=== PATIENT | female | born 1990 | race American Indian/Alaskan Native ===

== ENCOUNTER 2017-02-23 06:15 | Inpatient (IN) | payer BC, MEDICAID, OTHER ==
[~2017-02-23 06:15] MED LIST: Acetaminophen 325 MG Tab PO PRN; Acetaminophen/oxyCODONE 325-5 MG Tab PO PRN; Carboprost Tromethamine 250 MCG/1 ML Amp IM ONE; Citric Acid/Sodium Citrate Solution 30 ML Cup PO ONE; Methylergonovine 0.2 MG/1 ML Amp IM PRN; Misoprostol 400 MCG (4 X 100 MCG TAB) RECTAL PRN; Naloxone 2 MG/2 ML Syringe IVPUSH PRN; Ondansetron 4 MG/2 ML SDV IV PRN; Oxytocin/Normal Saline 30 UNIT/500 ML BAG IV SCH; ceFAZolin 2 GM in Premix Bag 1 BAG IV ONE; diphenhydrAMINE 50 MG/ML SDV IVPUSH PRN; ePHEDrine 50 MG/ML SDV IVPUSH PRN
[2017-02-23] MEDS: Lactated Ringers 1,000 ML IV SCH ×6 (06:49→22:44)
--- NOTE | 2017-02-23 08:35 | PCM.PREANE ---
Preanesthetic Assessment - Anesthesia/Transfusion/Family Hx Anesthesia History: Prior Anesthesia Without Reaction Family History of Anesthesia Reaction: No Transfusion History: No Prior Transfusion(s) Intubation History: Unknown - Review of Systems General: No Symptoms Pulmonary: No Symptoms Cardiovascular: No Symptoms Gastrointestinal: No symptoms Neurological: No Symptoms Other: Reports: None - Physical Assessment NPO Status Date: 02/22/17 NPO Status Time: 22:30 Pulse: 83 O2 Sat by Pulse Oximetry: 97 Respiratory Rate: 16 Blood Pressure: 120/82 Temperature: 98.1 C Vital Signs: Last Vital Signs Temp 36.6 C 02/23/17 06:30 Pulse 88 02/23/17 06:30 Resp 16 02/23/17 06:30 BP 138/84 02/23/17 06:30 Pulse Ox 97 02/23/17 06:30 Height: 1.65 m Weight: 112.037 kg ASA Class: 2 Airway Class: Mallampati = 3 Dentition: Reports: Missing Tooth/Teeth Thyro-Mental Finger Breadths: 2 Mouth Opening Finger Breadths: 3 ROM/Head Extension: Full Lungs: Clear to auscultation Cardiovascular: Regular Rate - Lab Values: Laboratory Last Values WBC 8.7 10^3/uL (5.0-10.0) 02/23/17 06:20 RBC 4.51 10^6/uL (4.2-5.4) 02/23/17 06:20 Hgb 11.8 g/dL (12.0-16.0) L 02/23/17 06:20 Hct 37.6 % (37.0-47.0) 02/23/17 06:20 MCV 83.4 fL (80-100) 02/23/17 06:20 MCH 26.2 pg (27.0-34.0) L 02/23/17 06:20 MCHC 31.4 g/dL (33.0-35.0) L 02/23/17 06:20 Plt Count 233 10^3/uL (150-450) 02/23/17 06:20 Urine Opiates Screen Negative (NEGATIVE) 02/23/17 06:35 Ur Oxycodone Screen Negative (NEGATIVE) 02/23/17 06:35 Urine Methadone Screen Negative (NEGATIVE) 02/23/17 06:35 Ur Barbiturates Screen Negative (NEGATIVE) 02/23/17 06:35 U Tricyclic Antidepress Negative (NEGATIVE) 02/23/17 06:35 Ur Phencyclidine Scrn Negative (NEGATIVE) 02/23/17 06:35 Ur Amphetamine Screen Negative (NEGATIVE) 02/23/17 06:35 U Methamphetamines Scrn Negative (NEGATIVE) 02/23/17 06:35 Urine MDMA Screen Negative (NEGATIVE) 02/23/17 06:35 U Benzodiazepines Scrn Negative (NEGATIVE) 02/23/17 06:35 Urine Cocaine Screen Negative (NEGATIVE) 02/23/17 06:35 U Marijuana (THC) Screen Negative (NEGATIVE) 02/23/17 06:35 Blood Type O POSITIVE 02/23/17 06:20 Gel Antibody Screen Negative 02/23/17 06:20 - Allergies Allergies/Adverse Reactions: Allergies Allergy/AdvReac Type Severity Reaction Status Date / Time azithromycin Allergy Seizure Verified 02/23/17 00:45 erythromycin base Allergy Hives Verified 02/23/17 00:47 - Blood Blood Available: No - Anesthesia Plan Pre-Op Medication Ordered: Antacids - Acknowledgements Anesthesia Type Planned: Spinal Pt an Appropriate Candidate for the Planned Anesthesia: Yes Alternatives and Risks of Anesthesia Discussed w Pt/Guardian: Yes Pt/Guardian Understands and Agrees with Anesthesia Plan: Yes PreAnesthesia Questionnaire HEENT History: Reports: None Cardiovascular History: Reports: None Respiratory History: Reports: None Gastrointestinal History: Reports: None Genitourinary History: Reports: UTI, recurrent ANIMAL NUTRITIONIST History: Reports: Musculoskeletal History: Reports: None Neurological History: Reports: None Psychiatric History: Reports: Addiction Endocrine/Metabolic History: Reports: None Hematologic History: Reports: None Immunologic History: Reports: None Oncologic (Cancer) History: Reports: None Dermatologic History: Reports: None - Infectious Disease History Infectious Disease History: Reports: None - Past Surgical History Head Surgeries/Procedures: Reports: None - SUBSTANCE USE Smoking Status *Q: Never Smoker Tobacco Use Within Last Twelve Months: No Second Hand Smoke Exposure: Yes Recreational Drug Use History: Yes Recreational Drug Type: Reports: Amphetamines (Speed) - HOME MEDS Home Medications: Home Meds Pnv No.122/Iron/Folic Acid [ Multi Tablet] 1 tab PO DAILY 02/23/17 [ History] - CURRENT (IN HOUSE) MEDS Current Meds: Current Medications Acetaminophen (Tylenol) 650 mg PO Q6H PRN PRN Reason: mild pain or fever Diphenhydramine HCl (Benadryl) 25 mg IVPUSH Q6H PRN PRN Reason: Itching or Nausea Docusate Sodium (Colace) 100 mg PO Q12H PRN PRN Reason: Constipation Ephedrine Sulfate (Ephedrine Sulfate) 5 mg IVPUSH SEECOMMENT PRN PRN Reason: Other Ferrous Sulfate (Ferrous Sulfate) 325 mg PO BRK LUDY Lactated Ringer's (Ringers, Lactated) 1,000 mls @ 125 mls/hr IV ASDIRECTED LUDY Last Admin: 02/23/17 07:28 Dose: 125 mls/hr Oxytocin/Sodium Chloride (Pitocin In Ns 30 Unit/500 Ml) 30 unit in 500 mls @ 500 mls/hr IV TITRATE LUDY; 500 MUNITS/MIN PRN Reason: Protocol Ibuprofen (Motrin) 800 mg PO Q8H PRN PRN Reason: mild pain or fever Ketorolac Tromethamine (Toradol) 15 mg IVPUSH Q6H [facility] Stop: 02/24/17 01:01 Methylergonovine Maleate (Methergine) 0.2 mg IM ONETIME PRN PRN Reason: Excessive Vaginal Bleeding Misoprostol (Cytotec) 800 mcg RECTAL ASDIRECTED PRN PRN Reason: Bleeding Naloxone HCl (Narcan) 0.1 mg IVPUSH SEECOMMENT PRN PRN Reason: Respiratory Depression Ondansetron HCl (Zofran) 4 mg IV Q4H PRN PRN Reason: Nausea/Vomiting Oxycodone/Acetaminophen (Percocet 325-5 Mg) 1 tab PO Q4H PRN PRN Reason: Pain (moderate 4-6) Oxycodone/Acetaminophen (Percocet 325-5 Mg) 2 tab PO Q4H PRN PRN Reason: Pain (moderate 4-6) Prenat Multivit/Cylinder Honer/Iron/Folic Ac ( Plus Iron) 1 each PO DAILY [facility] Simethicone (Simethicone) 80 mg PO Q4H PRN PRN Reason: Gas Discontinued Medications Carboprost Tromethamine (Hemabate Ds) 250 mcg IM ONETIME ONE Stop: 02/23/17 06:01 Citric Acid/Sodium Citrate (Bicitra Solution) 30 ml PO ONETIME ONE Stop: 02/23/17 06:01 Last Admin: 02/23/17 07:30 Dose: 30 ml Cefazolin Sodium/Dextrose 2 gm (/ Premix) 50 mls @ 100 mls/hr IV ONETIME ONE Stop: 02/23/17 06:29
[2017-02-23] MEDS ORDERED: Oxytocin/Normal Saline 30 UNIT/500 ML BAG IV ONE (10:59)
[2017-02-23] MEDS: Ferrous Sulfate 325 MG Tab PO SCH (11:51)
[2017-02-23] MEDS: Prenatal Multivitamin with Calcium/Folic Acid/Iron Tab PO SCH ×2 (11:54→11:55)
[2017-02-23] MEDS ORDERED: Ketorolac 30 MG/ML SDV IVPUSH SCH (13:00)
--- NOTE | 2017-02-23 14:56 | OR ---
DATE: 02/23/2017 PREOPERATIVE DIAGNOSES: 1. Intrauterine at 39 weeks by dates. 2. Previous x2, requests repeat low transverse . 3. Rubella equivocal. 4. Group B Streptococcus negative. 5. Urinary tract infection with E coli-treated in . 6. Positive urine drug screen for amphetamines on 01/22/2017, negative upon admission. 7. G5, P4-0-0-4. POSTOPERATIVE DIAGNOSES: 1. Intrauterine at 39 weeks by dates-delivered. 2. Previous x2, requests repeat low transverse . 3. Rubella equivocal. 4. Group B Streptococcus negative. 5. Urinary tract infection with E coli-treated in . 6. Positive urine drug screen for amphetamines on 01/22/2017, negative upon admission. 7. G5, P4-0-0-4. 8. Extensive scar tissue superficial to the fascia, left worse than right, with recommendation to the patient make sure OBGYN is available/assisting with next if she becomes again. PROCEDURE PERFORMED: Nonstress test followed by repeat low transverse C- section. MANUFACTURING EXECUTIVE: Radha Mendieta MD and Tino Mendoza, MS III. ANESTHESIA: Spinal. ESTIMATED BLOOD LOSS: 700 mL. IV FLUIDS: 2 L. URINE OUTPUT: 60 mL of clear yellow. START: 0812. UTERINE INCISION: 818. DELIVERY: 819. STOP: 839. FINDINGS: Male Apgars and weight pending. DESCRIPTION OF PROCEDURE: After proper consent was obtained, the patient was brought to the operating room where spinal anesthetic was administered. Garber was placed in preop under sterile conditions. Abdomen was prepped and draped in normal sterile fashion. The patient was placed in supine position with left lateral tilt. A skin incision was then made over the lower abdomen in transverse Pfannenstiel- type fashion over the previous scar, which was carried down to the fascia and scored in midline. Subcutaneous tissue was raked laterally with Delgadillo retractor and extensive scar tissue was noted on the left, requiring careful dissection using blunt, sharp, and electrocautery technique. Fascial incision was extended in transverse fashion using these techniques. Iman clamps x2 were used to grasp the superior aspect of fascia and rectus muscles were dissected from the fascia using sharp and blunt technique. In a similar fashion, Iman clamps x2 were used to grasp the inferior portion, and rectus and pyramidalis muscle was dissected from fascia using sharp and blunt technique. Rectus muscles were in the midline with blunt technique. Abdominal cavity was entered in blunt technique and incision was extended superiorly and inferiorly using blunt technique. Virgil O large retractor was then introduced and used. Lower uterine segment was identified, and curvilinear incision was made on lower uterine segment at 0819 hours. Uterus was entered sharply. Uterine incision was then extended in a transverse fashion using blunt technique. Bulging bag of water was then ruptured with Allis clamps. Subsequently, vertex was delivered through the incision followed by rest of the infant without difficulty. Mouth and nares were suctioned on the patient's lap. Cord was doubly clamped and cut, and the was brought over to team Then, approximately 10 mL cord blood was obtained for labs. Placenta then delivered with gentle cord traction and fundal massage. Uterine cavity was cleared of all blood clots and debris with lap sponge. Sanchez clamps were then used to grasp the uterine incision, this was closed in a running locked fashion, tied at lateral margins with 1-0 Vicryl. First inspection of the uterine incision revealed hemostasis. Virgil O retractor was then removed and paracolic gutters were then cleared of all blood clots and debris with lap sponge. Anterior cul-de-sac was then irrigated copiously and all blood clots and debris removed. Second and final inspection of uterine incision and anterior cul-de-sac revealed hemostasis. Rectus muscles were then reapproximated in the midline with [id number] stitch using 1-0 Vicryl. Subfascial tissue was found to be hemostatic. Fascia was closed in a running fashion and tied at lateral margin with 0 looped PDS. Subcutaneous tissue was irrigated copiously. Hemostasis was reassured. Skin was reapproximated with medium tashi. Sterile Aquacel dressing applied. Uterus fundus was firm and massaged at the conclusion of the case -2 below the umbilicus. No immediate complications were noted. Sponge, lap, and needle counts were correct. The patient received 2 g of Ancef preoperatively, Pitocin per protocol, and will receive Toradol at the conclusion of case for pain control. Mother and are currently stable at the time of dictation. [facility] /[id number]
[2017-02-23] MEDS ORDERED: Ondansetron 4 MG/2 ML SDV IV ONE (16:41)
[2017-02-23] MEDS ORDERED: Morphine PF 5 MG/10 ML SDV ONE (16:41)
[2017-02-23] MEDS ORDERED: Ketorolac 30 MG/ML SDV IVPUSH ONE (16:41)
[2017-02-23] MEDS ORDERED: fentaNYL 100 MCG/2 ML SDV ONE (16:41)
[2017-02-23] MEDS ORDERED: Midazolam 1 MG/ML 2 ML SDV IV ONE (16:41)
[2017-02-23] MEDS ORDERED: ePHEDrine 50 MG/ML SDV IV ONE (16:41)
[2017-02-23] MEDS: Ketorolac 30 MG/ML SDV IVPUSH SCH ×2 (18:44→21:18)
[2017-02-23] MEDS: Simethicone 80 MG Tab.Chew PO PRN (21:21)
[2017-02-23] MEDS: Docusate Sodium 100 MG Cap PO PRN (21:22)
[2017-02-24] MEDS: Lactated Ringers 1,000 ML IV SCH (01:49)
[2017-02-24] MEDS: Ketorolac 30 MG/ML SDV IVPUSH SCH (03:30)
[2017-02-24] MEDS: Acetaminophen/oxyCODONE 325-5 MG Tab PO PRN ×5 (06:09→22:16)
[2017-02-24] MEDS: Simethicone 80 MG Tab.Chew PO PRN ×3 (08:56→22:15)
[2017-02-24] MEDS: Ferrous Sulfate 325 MG Tab PO SCH (08:56)
[2017-02-24] MEDS: Prenatal Multivitamin with Calcium/Folic Acid/Iron Tab PO SCH (08:56)
[2017-02-24] MEDS: Docusate Sodium 100 MG Cap PO PRN ×2 (08:57→22:18)
--- NOTE | 2017-02-24 09:20 | OBOUT ---
DATE: 02/23/2017 DATE AND TIME OF NST: Date 02/23/2017. Time: 06:37 to 06:52. REASON FOR NST: 1. Intrauterine at 39 weeks by dates. 2. Previous x2, requests repeat low transverse . 3. Rubella equivocal. 4. GBS negative. 5. UTI in with E. coli. 6. Positive UDS for amphetamines on 01/22/2017, negative urine drug screen upon admission. 7. G5, P4-0-0-4. NST INTERPRETATION: During this time period, heart tone baseline is approximately 140 and there are at least two 15 x 15 beat per minute accelerations, making this strip reactive. It is also noted to be reassuring. Tocometer reveals some irritability with possible 1 contraction minimally felt by patient. ASSESSMENT: 1. Non-stress test-reactive and reassuring. 2. Tocometer with contraction. PLAN: Please see admit history and physical done through Epic. Updated include a blood pressure of 134/82, recheck 138/84, heart rate between 86 and 88, O2 sats 96-97% on room air. Temperature 97.8. Otherwise, please see H and P updated in Epic. Review of systems reviewed and felt to be noncontributory as well. [facility] /[id number]
--- NOTE | 2017-02-24 16:29 | PN ---
DATE: 02/24/2017 SUBJECTIVE: Mom is lying in bed comfortably with baby, appears in no acute distress. She has been able to get up and go to the bathroom to clean herself up, but Garber catheter still in place. Has not had a bowel movement or pass gas at this point. She notes some slight abdominal pain at the site of incision 12/05, not concerning at this point. No redness, erythema, fever, or increased abdominal pain noted. OBJECTIVE: Vital Signs: Temp is 97.9 Fahrenheit, pulse is 99, blood pressure is 109/64, respirations 16, and O2 sats 99. Appearance: Mom is lying comfortably in bed in no pain and no acute distress. HEENT: Head atraumatic. Pupils are equal, round, and reactive to light. No masses or lymphadenopathy noted on neck. Respiratory: No increased effort of breathing. Lungs: Clear to auscultation. Heart: S1, S2 are normal. Regular rate and rhythm. No extra heart sounds noted. Abdomen: Soft and nondistended. Slight pain with palpation over incision. Incision is healing well. Dry and intact. No erythema, swelling, or exudate. Extremities: No swelling or pain noted. Neurologic: No deficits noted. LABS: For this morning; WBC 7.4, RBC 3.86, hemoglobin is 10.3, and hematocrit is 33.0, MCV 85.5, MCH 26.7, MCHC 31.2 and platelet count is 189. ASSESSMENT: 1. Intrauterine at 39 weeks by dates. 2. Previous section x2. Repeat low-transverse section. 3. Rubella equivocal. 4. GBS negative. 5. Urinary tract infection with Escherichia coli treated in . 6. Positive urine drug screen for amphetamines on 01/22/2017 negative upon admission. 7. -0-4. 8. Extensive scar tissue superficial to the fascia left worse than right with recommendation to the patient to see BENCH WORKER HELPER for availability/assisting with next if she becomes again. PLAN: We will continue to monitor closely and clinically. We will remove the Garber catheter today. Encouraged to ambulate. Encouraged interaction and feeding with child. If everything continues going well, plan on discharge . [facility] /[id number]
[2017-02-24] MEDS: Ibuprofen 800 MG Tab PO PRN (17:49)
[2017-02-25] MEDS: Ibuprofen 800 MG Tab PO PRN ×3 (02:44→21:58)
[2017-02-25] MEDS: Acetaminophen/oxyCODONE 325-5 MG Tab PO PRN ×5 (02:45→21:58)
[2017-02-25] MEDS: Docusate Sodium 100 MG Cap PO PRN ×2 (08:46→21:58)
[2017-02-25] MEDS: Simethicone 80 MG Tab.Chew PO PRN ×3 (08:46→21:58)
[2017-02-25] MEDS: Ferrous Sulfate 325 MG Tab PO SCH (08:46)
[2017-02-25] MEDS: Prenatal Multivitamin with Calcium/Folic Acid/Iron Tab PO SCH (08:46)
--- NOTE | 2017-02-25 09:26 | PN ---
DATE: 02/25/2017 SUBJECTIVE: The patient is lying in bed, doing well, and in no acute distress. She notes that she is having some soreness around the surgical site 7 this morning, but still tolerable. She reports no fevers, headaches, dizziness, or lightheadedness. No changes in vision. She had the Garber catheter removed yesterday. She has had no problems urinating, no blood in the urine. She has not had a bowel movement, yet but has passed gas. She has been tolerating meals and has been able to ambulate. She has no concerns at this time. OBJECTIVE: Vital Signs: Temp is 98.3, pulse is 82, blood pressure is 138/85, respirations 16. Appearance: Well-appearing female lying in bed, in no acute distress. HEENT: Head atraumatic. Pupils are equal, round, and reactive to light. No masses or lymphadenopathy noted on neck. Respirations: Lungs are clear to auscultation. No increased effort of breathing. Heart: S1, S2 are normal. Regular rate and rhythm. No extra heart sounds noted. Abdomen: Soft and nondistended. Minimal pain over the incision site. Incision is healing well. Dry and intact. No erythema, swelling, or exudate. Extremities: No swelling or pain noted. Neurologic: No deficits noted. ASSESSMENT: 1. This is an intrauterine at 39 weeks by dates. 2. Previous section x2. Repeat low-transverse section. 3. Rubella equivocal. 4. GBS negative. 5. Urinary tract infection with E. coli treated in . 6. Positive urine drug screen for amphetamines on 01/22/2017, negative upon admission. 7. G5, P4-0-0-4. 8. Extensive scar tissue superficial to the fascia left worse than right with recommendation to the patient to see MANAGER IT SECURITY for availability/assisting with next if she becomes again. PLAN: We will continue to monitor closely and clinically. We will recheck a CBC without differential tomorrow. Plan on discharge tomorrow if everything continues to go well. Encouraged to continue to ambulate and will monitor for a bowel movement. [facility] /[id number]
[2017-02-26] MEDS: Acetaminophen/oxyCODONE 325-5 MG Tab PO PRN ×2 (02:35→06:44)
[2017-02-26] MEDS: Simethicone 80 MG Tab.Chew PO PRN ×2 (02:35→06:43)
[2017-02-26] MEDS: Ibuprofen 800 MG Tab PO PRN (06:43)
[2017-02-26 07:32] VITALS: BP 125/73
[2017-02-26] MEDS: Docusate Sodium 100 MG Cap PO PRN (08:42)
[2017-02-26] MEDS: Prenatal Multivitamin with Calcium/Folic Acid/Iron Tab PO SCH (08:42)
[2017-02-26] MEDS: Ferrous Sulfate 325 MG Tab PO SCH (08:42)
[2017-02-26] MEDS ORDERED: Measles, Mumps & Rubella Vaccine 0.5 ML SDV SUBCUT ONE (09:25)
--- NOTE | 2017-02-27 07:34 | DISCH ---
ADMISSION DIAGNOSES: 1. Intrauterine at 39 weeks by dates. 2. Previous caesarean section x2, request for repeat low transverse caesarean section. 3. Rubella equivocal. 4. Group B Streptococcus negative. 5. Urinary tract infection in the -Escherichia Coli-treated. 6. Positive urine drug screen for amphetamines on 01/22/2017, negative upon admission. 7. 5, para 4-0-0-4. DISCHARGE DIAGNOSES: 1. Intrauterine at 39 weeks by dates-delivered. 2. Previous caesarean section x2, request for repeat low transverse caesarean section. 3. Rubella equivocal. 4. Group B Streptococcus negative. 5. Urinary tract infection in the -Escherichia Coli-treated. 6. Positive urine drug screen for amphetamines on 01/22/2017, negative upon admission. 7. 5, para 4-0-0-4. 8. Scar tissue extensive and superficial to the fascia to the point that recommendation made if she becomes again, to make sure an DEPUTY COUNTY COUNSEL is available for her repeat . 9. Anemia of acute blood loss with hemoglobin dropping down to 10 from 11.8. PROCEDURE PERFORMED: NST and repeat low transverse per Dr. Street. HISTORY OF PRESENT ILLNESS: Please see H and P. SUMMARY OF HOSPITAL COURSE: The patient was admitted on the above date with the above diagnosis, underwent elective repeat low transverse under spinal anesthesia with an EBL of 700 mL, yielding a male, scores of 4 and 9, weighing 10 pounds 1 ounce (4565 g). There was extensive scar tissue superficially to the fascia with recommendation that patient would need DEPUTY COUNTY COUNSEL present for her next if she does become again. Postop day 1 and 2, please see progress notes done in conjunction with med students. Postop day #3 on date of discharge, the patient was tolerating p.o., was ambulating, urinating, passing flatus, requesting discharge. PHYSICAL EXAMINATION: Vital Signs: Last set of vitals updated and listed in the chart. Temperature 97.5, heart rate 82, blood pressure 125/73, respiratory rate 16. Lungs: Clear to auscultation bilaterally. Heart: S1 and S2. Regular rate and rhythm. Abdomen: Firm uterus at -2 below umbilicus with obesity noted. Aquacel dressing has minimal shadowing on the left, less than a 50-cent piece size and has not increased in size or saturated through. Extremities: Trace pedal edema. No calf pain. DISCHARGE LABS: White cell count 7.6, hemoglobin 10, platelets 227. CONDITION ON DISCHARGE COMPARED TO CONDITION ON ADMISSION: Improved. DISCHARGE INSTRUCTIONS: 1. Diet as tolerated. 2. Activity, no lifting more than 10-15 pounds. No sit-ups, straining, and pelvic rest for next 6 weeks with immediate return to fertility discussed with the patient. 3. Reason to return or go to the emergency room was discussed with the patient in detail including, but not limited to, temperature of greater than 100.4, foul-smelling discharge, red or tender breasts, or increased vaginal bleeding. DISCHARGE MEDICATIONS: 1. [id number] Tylenol or ibuprofen for pain. 2. Iron sulfate 325 b.i.d. x6 weeks. 3. Percocet 5/325 one to two q.6 hours p.r.n., #30, no refills. Discussed the medications, adverse and wanted effects, as well as precautions with driving. FOLLOW UP: On 03/02/2017 for staple removal with her baby at that time. I did discuss in the interim reason to return or go to the emergency room in regard to her baby as well as ramifications of not following up as instructed. She understands and agrees with the above treatment plan. [facility] /[id number]
--- NOTE | 2017-03-02 15:31 | PCM.POSTAN ---
POST ANESTHESIA ASSESSMENT - VITAL SIGNS Pulse Rate: 82 SaO2: 99 Resp Rate: 20 Blood Pressure: 122/82 Temperature: 36.2 C - RESPIRATORY Respiratory Status: respiratory rate WNL - CARDIOVASCULAR CV Status: pulse rate WNL, blood pressure stable - GASTROINTESTINAL GI Status: no symptoms - PAIN Pain Score: 0 Free Text/Narrative:: Spinal level is T8 Bilateral - POST OP HYDRATION Hydration Status: adequate & stable - OBSERVATIONS Free Text/Narrative:: Patient is ready to be discharged to her room. Tolerated ice chips well, minimal bleeding and tolerated ice chips well no nausea or pain reported by patient
== END 2017-02-26 11:00 | disposition home or self-care (01) | DRG 766 ==
LOC: DL.OB 06:15 → OBSVTOIN 08:20 → DL.MS 02-25 12:22
PROVIDERS: ADMIT Family Medicine; ATTEND Family Medicine
PROC: 10D00Z1 Extraction of Products of Conception, Low, Open Approach (ICD-10-PCS; principal; 2017-02-23)
DX: O34.211 Maternal care for low transverse scar from previous cesarean delivery (principal); Z3A.39 39 weeks gestation of pregnancy; Z37.0 Single live birth; Z23 Encounter for immunization; Z86.59 Personal history of other mental and behavioral disorders
CPT/HCPCS: 01961; 36415; 80305; 85027; 86850; 86900; 86901; 90707; A9270-GY; J0690; J1200; J1885; J2250; J2274; J2405; J2590; J3010; J7120

== ENCOUNTER 2017-07-30 13:23 | Emergency (ER) | payer MEDICAID, OTHER ==
[2017-07-30 13:35] VITALS: BP 146/82
--- NOTE | 2017-07-30 13:45 | EDM.PDOC ---
ED HPI GENERAL MEDICAL PROBLEM - General Chief Complaint: Upper Extremity Injury/Pain Stated Complaint: BROKEN WRIST?, [id number] Time Seen by Provider: 07/30/17 13:40 Source of Information: Reports: Patient History Limitations: Reports: No Limitations - History of Present Illness INITIAL COMMENTS - FREE TEXT/NARRATIVE: 27 yo Onset Date: 07/29/17 Onset Time: 22:00 Duration: Day(s): Location: Reports: Upper Extremity, Left Quality: Reports: Ache Severity: Moderate Improves with: Reports: Rest Worsens with: Reports: Movement Context: Reports: Trauma (fell last PM) Associated Symptoms: Reports: No Other Symptoms Right Wrist Pain Score (Numeric/FACES): 7 - Related Data Allergies Allergy/AdvReac Type Severity Reaction Status Date / Time azithromycin Allergy Seizure Verified 07/30/17 13:34 erythromycin base Allergy Hives Verified 07/30/17 13:34 Past Medical History HEENT History: Reports: None, Impaired Vision Other HEENT History: wears glasses Cardiovascular History: Reports: None Respiratory History: Reports: None Gastrointestinal History: Reports: None Genitourinary History: Reports: UTI, Recurrent CHEMICAL TECHNICIAN History: Reports: Musculoskeletal History: Reports: None Neurological History: Reports: None Psychiatric History: Reports: Addiction Endocrine/Metabolic History: Reports: None Hematologic History: Reports: None Immunologic History: Reports: None Oncologic (Cancer) History: Reports: None Dermatologic History: Reports: None - Infectious Disease History Infectious Disease History: Reports: None - Past Surgical History Head Surgeries/Procedures: Reports: None Social & Family History - Family History Family Medical History: Noncontributory - Tobacco Use Smoking Status *Q: Never Smoker Second Hand Smoke Exposure: No - Caffeine Use Caffeine Use: Reports: Soda - Recreational Drug Use Recreational Drug Use: No Drug Use in Last 12 Months: Yes Recreational Drug Type: Reports: Amphetamines (Speed) Review of Systems - Review of Systems Review Of Systems: See Below Constitutional: Reports: No Symptoms Eyes: Reports: No Symptoms Ears: Reports: No Symptoms Nose: Reports: No Symptoms Mouth/Throat: Reports: No Symptoms Respiratory: Reports: No Symptoms Cardiovascular: Reports: No Symptoms GI/Abdominal: Reports: No Symptoms Genitourinary: Reports: No Symptoms Musculoskeletal: Reports: Other (right wrist) Skin: Reports: Bruising Neurological: Reports: No Symptoms Psychiatric: Reports: No Symptoms ED EXAM, GENERAL - Physical Exam Exam: See Below Exam Limited By: No Limitations General Appearance: Alert, No Apparent Distress, Obese Eye Exam: Bilateral Eye: PERRL Ears: Normal External Exam Nose: Normal Inspection Throat/Mouth: Normal Inspection Head: Atraumatic Neck: Normal Inspection Respiratory/Chest: No Respiratory Distress Cardiovascular: Normal Peripheral Pulses Peripheral Pulses: 2+: Radial (L), Radial (R) GI/Abdominal: Normal Bowel Sounds Back Exam: Normal Inspection Extremities: Normal Inspection, Limited Range of Motion (right wrist), Redness Neurological: Alert, Oriented, CN II-XII Intact Psychiatric: Normal Affect Skin Exam: Warm, Dry, Intact, Erythema Lymphatic: No Adenopathy Course - Vital Signs Last Recorded V/S: Last Vital Signs Temp 36.9 C 07/30/17 13:29 Pulse 88 07/30/17 13:29 Resp 16 07/30/17 13:29 BP 146/82 H 07/30/17 13:29 Pulse Ox 100 07/30/17 13:29 - Orders/Labs/Meds Orders: Active Orders 24 hr Category Date Time Status Wrist 2V Rt [CR] Urgent Exams 07/30/17 13:40 Taken Departure - Departure Time of Disposition: 14:31 Disposition: Home, Self-Care 01 Condition: Good Clinical Impression: Contusion of wrist, right Qualifiers: Encounter type: initial encounter Qualified Code(s): S60.211A - Contusion of right wrist, initial encounter - Discharge Information Forms: ED Department Discharge Additional Instructions: Rest Elevate and apply ice pack to right wrist TID X 15mins. For pain take Tylenol Extra Strength 500mg QID or ADVIL / ALLEVE 600mg TID w/ Food F/U w/ PCP - My Orders Last 24 Hours: My Active Orders 07/30/17 13:40 Wrist 2V Rt [CR] Urgent - Assessment/Plan Last 24 Hours: My Active Orders 07/30/17 13:40 Wrist 2V Rt [CR] Urgent
== END 2017-07-30 14:44 | disposition home or self-care (01) ==
LOC: DL.ED 13:23
DX: S60.211A Contusion of right wrist, initial encounter (principal); Z88.1 Allergy status to other antibiotic agents; Z87.440 Personal history of urinary (tract) infections; W19.XXXA Unspecified fall, initial encounter
CPT/HCPCS: 73100-RT; 99284

== ENCOUNTER 2020-06-06 19:51 | Emergency (ER) | payer MEDICAID, OTHER ==
[2020-06-06 20:04] VITALS: BP 122/84; PULSE 86
--- NOTE | 2020-06-06 20:24 | EDM.PDOC ---
ED HPI GENERAL MEDICAL PROBLEM - General Chief Complaint: Lower Extremity Injury/Pain Stated Complaint: LEFT ANKLE AREA, FELL. Time Seen by Provider: 06/06/20 20:24 Source of Information: Reports: Patient, RN, RN Notes Reviewed History Limitations: Reports: No Limitations - History of Present Illness INITIAL COMMENTS - FREE TEXT/NARRATIVE: Patient presents to ER with complaint of left ankle pain. Patient states she was moving furniture with someone today, was walking backwards when she tripped and fell. Patient complains of pain from the distal portion of the tib-fib through the ankle and into the foot. Patient is able to wiggle the toes. States she is unable to bear much weight on the ankle. Patient denies any previous injury to the ankle. This happened just prior to arrival. Onset: Today, Sudden Left Foot Pain Score (Numeric/FACES): 6 - Related Data Allergies Allergy/AdvReac Type Severity Reaction Status Date / Time azithromycin Allergy Seizure Verified 06/06/20 20:03 erythromycin base Allergy Hives Verified 06/06/20 20:03 Home Meds: Home Meds metFORMIN [Glucophage XR] 500 mg PO BIDMEALS 06/06/20 [History] Past Medical History HEENT History: Reports: None, Impaired Vision Other HEENT History: wears glasses Cardiovascular History: Reports: None Respiratory History: Reports: None Gastrointestinal History: Reports: None Genitourinary History: Reports: UTI, Recurrent [employer] History: Reports: Musculoskeletal History: Reports: None Neurological History: Reports: None Psychiatric History: Reports: Addiction Endocrine/Metabolic History: Reports: Diabetes, Type II Hematologic History: Reports: None Immunologic History: Reports: None Oncologic (Cancer) History: Reports: None Dermatologic History: Reports: None - Infectious Disease History Infectious Disease History: Reports: None - Past Surgical History Head Surgeries/Procedures: Reports: None Social & Family History - Family History Family Medical History: Noncontributory - Tobacco Use Smoking Status *Q: Never Smoker Second Hand Smoke Exposure: No - Caffeine Use Caffeine Use: Reports: Soda - Recreational Drug Use Recreational Drug Use: No Review of Systems - Review of Systems Review Of Systems: Comprehensive ROS is negative, except as noted in HPI. ED EXAM, GENERAL - Physical Exam Exam: See Below Exam Limited By: No Limitations General Appearance: Alert, WD/WN, Mild Distress Eye Exam: Bilateral Eye: EOMI, Normal Inspection Ears: Normal External Exam, Hearing Grossly Normal Nose: Normal Inspection Throat/Mouth: Normal Inspection, Normal Voice, No Airway Compromise Head: Atraumatic, Normocephalic Neck: Normal Inspection, Supple, Non-Tender, Full Range of Motion Respiratory/Chest: No Respiratory Distress, Lungs Clear, Normal Breath Sounds, No Accessory Muscle Use, Chest Non-Tender Cardiovascular: Normal Peripheral Pulses, Regular Rate, Rhythm, No Edema, No Gallop, No JVD, No Murmur, No Rub Peripheral Pulses: 2+: Radial (L), Radial (R), Dorsalis Pedis (L), Dorsalis Pedis (R) GI/Abdominal: Normal Bowel Sounds, Soft, Non-Tender (Female) Exam: Deferred Rectal (Female) Exam: Deferred Back Exam: Normal Inspection, Full Range of Motion, NT Extremities: Normal Inspection, Joint Swelling (minimal, left ankle), Leg Pain (left ankle), Limited Range of Motion (left ankle). No: Redness Neurological: Alert, Oriented, CN II-XII Intact, Normal Cognition, Normal Reflexes, No Motor/Sensory Deficits Psychiatric: Normal Affect, Normal Mood Skin Exam: Warm, Dry, Intact, Normal Color, No Rash Lymphatic: No Adenopathy Course - Vital Signs Last Recorded V/S: Last Vital Signs Temp 97.8 F 06/06/20 19:55 Pulse 86 06/06/20 19:55 Resp 18 06/06/20 19:55 BP 122/84 06/06/20 19:55 Pulse Ox 99 06/06/20 19:55 - Radiology Interpretation Free Text/Narrative:: Left ankle xray: PROCEDURE INFORMATION: Exam: XR Left Ankle Exam date and time: 06/06/2020 8:27 PM Age: 29 years old Clinical indication: Pain; Ankle; Left; Additional info: Fall, injury TECHNIQUE: Imaging protocol: XR Left ankle. Views: 3 or more views. COMPARISON: No relevant prior studies available. FINDINGS: Bones/joints: No acute fracture. Ankle mortise is intact Soft tissues: Punctate foreign body in the subcutaneous calcaneal region. IMPRESSION: No acute osseous process. Thank you for allowing us to participate in the care of your patient. Dictated and Authenticated by: Daquan Clinton MD 06/06/2020 9:02 PM Central Time ([place] & [place]) See rad report Departure - Departure Time of Disposition: 21:04 Disposition: Home, Self-Care 01 Condition: Good Clinical Impression: Sprain of left ankle Qualifiers: Encounter type: initial encounter Involved ligament of ankle: unspecified ligament Qualified Code(s): S93.402A - Sprain of unspecified ligament of left ankle, initial encounter - Discharge Information *PRESCRIPTION DRUG MONITORING PROGRAM REVIEWED*: No *COPY OF PRESCRIPTION DRUG MONITORING REPORT IN PATIENT VIKTORIYA: No Instructions: How to Use Cold Therapy, [id number], Ankle Sprain, [id number], Elastic Bandage and RICE Therapy Forms: ED Department Discharge Additional Instructions: Use LAKISHA bandage when active Elevate the ankle as much as possible Ice the ankle when tolerated May use Tylenol and/or Ibuprofen as directed for pain Follow up with your primary care facility if no improvement in 2 weeks Sepsis Event Note (ED) - Evaluation Sepsis Screening Result: No Definite Risk - Focused Exam Vital Signs: Vital Signs Temp Pulse Resp BP Pulse Ox 06/06/20 19:55 97.8 F 86 18 122/84 99
--- NOTE | 2020-06-06 21:02 | CR ---
PROCEDURE INFORMATION: Exam: XR Left Ankle Exam date and time: 06/06/2020 8:27 PM Age: 29 years old Clinical indication: Pain; Ankle; Left; Additional info: Fall, injury TECHNIQUE: Imaging protocol: XR Left ankle. Views: 3 or more views. COMPARISON: No relevant prior studies available. FINDINGS: Bones/joints: No acute fracture. Ankle mortise is intact Soft tissues: Punctate foreign body in the subcutaneous calcaneal region. IMPRESSION: No acute osseous process.
== END 2020-06-06 21:13 | disposition home or self-care (01) ==
LOC: DL.ED 19:51
DX: S93.402A Sprain of unspecified ligament of left ankle, initial encounter (principal); E11.9 Type 2 diabetes mellitus without complications; Z79.84 Long term (current) use of oral hypoglycemic drugs; Z88.1 Allergy status to other antibiotic agents; W01.0XXA Fall on same level from slipping, tripping and stumbling without subsequent striking against object, initial encounter
CPT/HCPCS: 73610-LT; 99282; 99283

== ENCOUNTER 2023-04-10 06:16 | Inpatient (IN) | payer BC, MEDICAID ==
[~2023-04-10 06:16] MED LIST changes: -Carboprost Tromethamine 250 MCG/1 ML Amp IM ONE; +Carboprost Tromethamine 250 MCG/1 ML Amp IM PRN; -Citric Acid/Sodium Citrate Solution 30 ML Cup PO ONE; +Ibuprofen 800 MG Tab PO PRN; +Measles, Mumps & Rubella Vaccine 0.5 ML SDV SUBCUT ONE; -Ondansetron 4 MG/2 ML SDV IV PRN; +Ondansetron 4 MG/2 ML SDV IVPUSH PRN; +Tranexamic Acid 1,000 MG in Sodium Chloride 0.9% 100 ML IV PRN; +ceFAZolin 1 GM Vial IVPUSH ONE; +ceFAZolin 2 GM Vial IVPUSH ONE; -ceFAZolin 2 GM in Premix Bag 1 BAG IV ONE
[2023-04-10 06:29] LABS: HEMATOCRIT 35.3 % (37.0-47.0); HEMOGLOBIN 11.3 g/dL (12.0-16.0); MEAN CORPUSCULAR HEMOGLOBIN 26.8 pg (27.0-34.0); MEAN CORPUSCULAR VOLUME 83.8 fL (80-100); RED BLOOD CELL COUNT 4.21 10^6/uL (4.2-5.4); WHITE BLOOD CELL COUNT,WBC 9.4 10^3/uL (5.0-10.0)
[2023-04-10] MEDS: Lactated Ringers 1,000 ML IV SCH ×3 (07:00→17:45)
[2023-04-10] MEDS ORDERED: Oxytocin/Normal Saline 30 UNIT/500 ML BAG ONE (07:26)
[2023-04-10] MEDS ORDERED: ceFAZolin 2 GM Vial ONE (07:26)
[2023-04-10] MEDS ORDERED: Phenylephrine HCl In 0.9% NaCl 1 MG/10 ML Syringe IV ONE (07:45)
[2023-04-10] MEDS ORDERED: ceFAZolin 2 GM Vial IV ONE (07:45)
[2023-04-10] MEDS ORDERED: Morphine PF 10 MG/10 ML SDV IV ONE (07:45)
[2023-04-10] MEDS ORDERED: Dexamethasone 4 MG/ML SDV IV ONE (07:45)
[2023-04-10] MEDS ORDERED: Ketorolac 30 MG/ML SDV IVPUSH ONE (07:45)
[2023-04-10] MEDS ORDERED: SODIUM CHLORIDE 0.9% IV ONE (07:45)
[2023-04-10] MEDS ORDERED: ceFAZolin 1 GM Vial IVPUSH ONE (07:45)
[2023-04-10] MEDS ORDERED: OXYTOCIN IV ONE (07:45)
[2023-04-10] MEDS ORDERED: 50% Dextrose in Water 50 ML Syringe IVPUSH PRN (07:47)
[2023-04-10] MEDS ORDERED: Glucagon,Human Recombinant 1 MG Vial IM PRN (07:47)
[2023-04-10] MEDS ORDERED: ceFAZolin 1 GM Vial ONE (07:59)
[2023-04-10] MEDS ORDERED: Oxytocin 10 Units/1 ML SDV ONE (08:12)
[2023-04-10] MEDS ORDERED: Oxytocin/Normal Saline 30 UNIT/500 ML BAG IV SCH (09:30)
[2023-04-10] MEDS ORDERED: Promethazine 25 MG/ML SDV IM ONE (11:10)
[2023-04-10] MEDS: Prenatal Multivitamin with Calcium/Folic Acid/Iron Tab PO SCH (11:12)
[2023-04-10] MEDS: Simethicone 80 MG Tab.Chew PO SCH ×4 (11:12→21:06)
[2023-04-10] MEDS: metFORMIN 500 MG Tab PO SCH ×2 (11:13→17:10)
[2023-04-10] MEDS: Insulin Lispro 100 Units/ML 3 ML Vial SUBCUT SCH ×3 (11:13→16:52)
[2023-04-10] MEDS ORDERED: Lactated Ringers 1,000 ML IV ONE (13:00)
[2023-04-10] MEDS: Ketorolac 30 MG/ML SDV IVPUSH SCH ×4 (14:45→21:05)
[2023-04-10] MEDS: Docusate Sodium 100 MG Cap PO PRN (21:06)
[2023-04-11] MEDS: Lactated Ringers 1,000 ML IV SCH (00:31)
[2023-04-11] MEDS: Ketorolac 30 MG/ML SDV IVPUSH SCH (02:39)
[2023-04-11 07:55] LABS: HEMATOCRIT 31.8 % (37.0-47.0); HEMOGLOBIN 9.9 g/dL (12.0-16.0); MEAN CORPUSCULAR HEMOGLOBIN 26.8 pg (27.0-34.0); MEAN CORPUSCULAR HGB CONC 31.1 g/dL (33.0-35.0); MEAN CORPUSCULAR VOLUME 85.9 fL (80-100); RED BLOOD CELL COUNT 3.7 10^6/uL (4.2-5.4); WHITE BLOOD CELL COUNT,WBC 9.6 10^3/uL (5.0-10.0)
[2023-04-11] MEDS: Insulin Lispro 100 Units/ML 3 ML Vial SUBCUT SCH ×3 (08:12→17:46)
[2023-04-11] MEDS: metFORMIN 500 MG Tab PO SCH ×2 (08:39→17:30)
[2023-04-11] MEDS: Simethicone 80 MG Tab.Chew PO SCH ×4 (08:40→21:14)
[2023-04-11] MEDS: Prenatal Multivitamin with Calcium/Folic Acid/Iron Tab PO SCH (08:40)
[2023-04-11] MEDS: Docusate Sodium 100 MG Cap PO PRN ×2 (08:54→19:33)
[2023-04-11] MEDS: Acetaminophen/oxyCODONE 325-5 MG Tab PO PRN ×3 (12:47→21:14)
[2023-04-11] MEDS: Ibuprofen 800 MG Tab PO PRN (13:52)
[2023-04-12] MEDS: Acetaminophen/oxyCODONE 325-5 MG Tab PO PRN ×2 (01:11→05:08)
[2023-04-12] MEDS: Ibuprofen 800 MG Tab PO PRN ×2 (01:11→08:48)
[2023-04-12] MEDS: Simethicone 80 MG Tab.Chew PO SCH (08:46)
[2023-04-12] MEDS: metFORMIN 500 MG Tab PO SCH (08:46)
[2023-04-12] MEDS: Docusate Sodium 100 MG Cap PO PRN (08:47)
[2023-04-12] MEDS: Prenatal Multivitamin with Calcium/Folic Acid/Iron Tab PO SCH (08:47)
[2023-04-12] MEDS ORDERED: Take Home: Acetaminophen/oxyCODONE 325-5 MG, 5 Tab Pack PO ONE ×2 (08:54→13:14)
[2023-04-12 13:32] VITALS: BP 128/65; PULSE 82
== END 2023-04-12 13:15 | disposition home or self-care (01) | DRG 540 ==
LOC: DL.MS 06:16 → UNDOADMOB 06:16 → DL.OB 06:16 → DL.MS 08:17 → OBSVTOIN 08:17
PROVIDERS: ADMIT Family Medicine; ATTEND Family Medicine
PROC: 10D00Z1 Extraction of Products of Conception, Low, Open Approach (ICD-10-PCS; principal; 2023-04-10)
DX: O34.211 Maternal care for low transverse scar from previous cesarean delivery (principal); O24.420 Gestational diabetes mellitus in childbirth, diet controlled; O99.824 Streptococcus B carrier state complicating childbirth; Z37.0 Single live birth; Z79.4 Long term (current) use of insulin; Z79.899 Other long term (current) drug therapy; Z3A.37 37 weeks gestation of pregnancy; Z88.0 Allergy status to penicillin
CPT/HCPCS: 01961; 36415; 82947; 85027; 86850; 86900; 86901; 94010; A9270-GY; J0690; J1100; J1885; J2270; J2370; J2550; J2590; J3490; J7120

== ENCOUNTER 2023-08-09 06:01 | Emergency (ER) | payer MEDICAID, BC ==
[2023-08-09] MEDS ORDERED: Take Home: Amoxicillin/Clavulanate K 875-125 MG Tab, 6 Tab Pack PO ONE (06:15)
[2023-08-09] MEDS ORDERED: Acetaminophen 500 MG Tab PO ONE (06:16)
[2023-08-09 06:19] VITALS: BP 151/107; PULSE 100
[2023-08-09] MEDS ORDERED: Lidocaine 2% Jelly 10 ML Urojet MUCMEM ONE (06:19)
== END 2023-08-09 06:28 | disposition home or self-care (01) ==
LOC: DL.ED 06:01
DX: K04.7 Periapical abscess without sinus (principal); E11.9 Type 2 diabetes mellitus without complications; E66.9 Obesity, unspecified; Z79.84 Long term (current) use of oral hypoglycemic drugs; Z68.42 Body mass index [BMI] 45.0-49.9, adult; Z88.1 Allergy status to other antibiotic agents
CPT/HCPCS: 99282; 99283; A9270

== ENCOUNTER 2025-06-30 23:20 | Emergency (ER) | payer BC, MEDICAID ==
[2025-06-30 23:54] LABS: BASOPHILS PERCENT AUTO 0.5 % (0.0-1.0); EOSINOPHILS PERCENT AUTO 1.3 % (1.0-3.0); LYMPHOCYTES PERCENT AUTO 36.4 % (20.5-50.1); MONOCYTES PERCENT AUTO 5.5 % (2-8); NEUTROPHILS PERCENT AUTO 56.3 % (42.2-75.2); PLATELET COUNT,PLT 277 10^3/uL (150-450); RED BLOOD CELL COUNT 5.00 10^6/uL (4.2-5.4); WHITE BLOOD CELL COUNT,WBC 10.4 10^3/uL (5.0-10.0)
[2025-06-30] MEDS: Dexamethasone 4 MG/ML SDV IVPUSH ONE (23:55)
[2025-06-30] MEDS: diphenhydrAMINE 50 MG/ML SDV IVPUSH ONE (23:56)
[2025-07-01 00:12] LABS: A/G RATIO 1.0; ALANINE AMINOTRANSFERASE,ALT 31 U/L (14-59); ASPARTATE AMNIOTRANSFERASE,AST 13 U/L (15-37); BILIRUBIN TOTAL 0.2 mg/dL (0.2-1.0); BLOOD UREA NITROGEN,BUN 13 mg/dL (7-18); CARBON DIOXIDE,CO2 30 mmol/L (21-32); CHLORIDE,CL 106 mmol/L (98-107); CREATININE 0.62 mg/dL (0.55-1.02); EST CRCL DRUG DOSING (CG) 112.88 mL/min; GLUCOSE RANDOM 120 mg/dL (70-99); POTASSIUM,K 4.1 mmol/L (3.5-5.1); PROTEIN TOTAL,TP 7.3 g/dL (6.4-8.2); SODIUM,NA 141 mmol/L (136-145)
[2025-07-01 00:13] LABS: ESTIMATED GFR 118 mL/min (>=60)
[2025-07-01 00:17] LABS: HCG QUALITATIVE,SERUM NEGATIVE (NEGATIVE)
[2025-07-01] MEDS: Take Home: Amoxicillin 500 MG, 6 Cap Pack PO ONE (02:11)
[2025-07-01] MEDS ORDERED: Take Home: Amoxicillin 500 MG, 6 Cap Pack ONE (02:12)
[2025-07-01 02:17] VITALS: BP 114/65; PULSE 86
== END 2025-07-01 02:05 | disposition home or self-care (01) ==
LOC: DL.ED 23:20
DX: J32.9 Chronic sinusitis, unspecified (principal); E11.9 Type 2 diabetes mellitus without complications; Z88.1 Allergy status to other antibiotic agents; Z79.84 Long term (current) use of oral hypoglycemic drugs; Z79.4 Long term (current) use of insulin; Z86.16 Personal history of COVID-19
CPT/HCPCS: 36415; 70450; 80053; 84703; 85025; 96361; 96374; 96375; 99284; A9270; J1100; J1200; J2765; J7030